=== PATIENT | female | born 1960 | race Asian ===

== ENCOUNTER 2021-09-01 10:39 | Emergency (ER) | payer OTHER ==
[~2021-09-01] VITALS: Ht 165.1 cm; Wt 62.7 kg
[2021-09-01 10:50] VITALS: BP 161/94; PULSE 73; TEMP 97.9
== END 2021-09-01 11:56 | disposition home or self-care (01) ==
LOC: COL.ER 10:39
DX: S06.0X9A Concussion with loss of consciousness of unspecified duration, initial encounter (principal); S70.02XA Contusion of left hip, initial encounter; S00.03XA Contusion of scalp, initial encounter; S30.0XXA Contusion of lower back and pelvis, initial encounter; W01.198A Fall on same level from slipping, tripping and stumbling with subsequent striking against other object, initial encounter

== ENCOUNTER 2023-01-26 14:57 | Emergency (ER) | payer OTHER ==
[~2023-01-26] VITALS: Ht 160 cm; Wt 63.2 kg
[2023-01-26 15:05] VITALS: TEMP 98.4
[2023-01-26 17:28] VITALS: BP 184/84; PULSE 83
== END 2023-01-26 17:28 | disposition home or self-care (01) ==
LOC: COL.ER 14:57
DX: S27.818A Other injury of esophagus (thoracic part), initial encounter (principal); W44.8XXA Other foreign body entering into or through a natural orifice, initial encounter